=== PATIENT | female | born 1980 | race Caucasian/White ===

== ENCOUNTER → 2018-01-23 | Outpatient (CLI) | payer OTHER ==
--- NOTE | 2018-01-23 16:30 | RAD ---
Abdominal ultrasound, 01/23/2018: HISTORY: Abdominal pain The gallbladder is within normal limits in size. There is no sonographic evidence of cholelithiasis. The gallbladder wall is not thickened. No bile duct dilatation is evident. There is a 1.9 cm hyperechoic focus seen posteriorly in the right lobe of the liver. This appearance is most commonly due to a hemangioma. A 3 cm hyperechoic process is identified at the radha hepatis level. This probably represents an additional hemangioma versus extension of abdominal fat into the radha hepatis. The liver is otherwise unremarkable. The visualized portions of the pancreatic body are unremarkable. Other portions of the pancreas were obscured by overlying bowel. The aorta and inferior vena cava were incompletely visualized due to overlying bowel. The visualized portions of the abdominal aorta are of normal caliber. The spleen is of normal size. No renal abnormality is detected. No free fluid is evident in the abdomen. IMPRESSION: 1. Two small hyperechoic hepatic lesions are most likely hemangiomas. CT correlation and/or sonographic surveillance to establish stability is suggested. 2. No acute abdominal abnormality is detected. Electronically signed by: Baldomero Ruiz MD (01/23/2018 4:27 PM) [facility]
== END | disposition home or self-care (01) ==
LOC: US 10:34
PROVIDERS: ATTEND Family Medicine
DX: K76.89 Other specified diseases of liver (principal)
CPT/HCPCS: 76700

== ENCOUNTER → 2018-01-30 | Outpatient (CLI) | payer OTHER ==
[~2018-01-30] MED LIST: AMIT10TA PO; IOHEXOL 240 MG/ML 50ML VIAL. PO ONE; IOHEXOL 300 MG/ML 100ML VIAL. IV ONE
--- NOTE | 2018-01-30 10:14 | KCIC ---
CT ABD PELV W/ORAL IV CONTRAST dated 01/30/2018 9:30 AM Indication: Right upper quadrant pain.. Pain for 2 weeks Comparison: Ultrasound dated 01/23/2018. Technique: Contiguous axial imaging of the abdomen and pelvis performed after the administration of 100 cc Omnipaque 300. One or more of the following individualized dose reduction techniques were utilized for this examination: 1. Automated exposure control 2. Adjustment of the mA and/or kV according to patient size 3. Use of iterative reconstruction technique Findings: Limited images of lung bases are clear. Heart size within normal limits. No pleural or pericardial effusion. 2 small heterogeneous nodular foci at the right hepatic dome measure about 1.4 cm in size each and correlate with sonographic findings. There is also possible small nodule at the left lobe liver on image 12 that measures 1.6 cm. Additional area of low density along the radha hepatis correlates with echogenic focus seen on recent ultrasound. No biliary ductal dilatation. Gallbladder unremarkable. Spleen is normal in size. Pancreas, adrenal glands and kidneys are unremarkable. No hydronephrosis. Partially opacified GI tract is normal in caliber and contour. No focal bowel wall thickening. No inflammatory stranding in the mesentery. The appendix is normal in caliber. No ascites or lymphadenopathy. Abdominal aorta normal in caliber Images of pelvis show nondistended urinary bladder. Uterus and adnexa are unremarkable. No free fluid or lymphadenopathy. Bone windows show no acute findings. Mild multilevel spondylosis. IMPRESSION: 1. No acute abnormality of abdomen or pelvis. Normal appendix. 2. There are multiple liver lesions, 2 of which appear to correlate with findings on recent ultrasound. Given the appearance, these likely represent multifocal hemangioma. Suggest a follow-up biphasic CT or hepatic MRI in 6 months to ensure stability. Electronically signed by: Ken Salcido MD (01/30/2018 10:11 AM) [id number]
== END | disposition home or self-care (01) ==
LOC: KCIC CT 08:15
PROVIDERS: ATTEND Family Medicine
DX: M47.896 Other spondylosis, lumbar region (principal)
CPT/HCPCS: 74177; Q9966; Q9967

== ENCOUNTER → 2019-11-22 | Outpatient (CLI) | payer OTHER ==
[~2019-11-22] MED LIST changes: -IOHEXOL 240 MG/ML 50ML VIAL. PO ONE; -IOHEXOL 300 MG/ML 100ML VIAL. IV ONE
--- NOTE | 2019-11-22 12:01 | KCIC ---
BRAIN W/O CONTRAST History:Reason: LEFT LOWER EXTEMITY WEAKNESS / Spl. 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 Left leg weakness, left arm weakness. Technique: Multiplanar, multi sequential MR imaging was performed of the brain without contrast. Comparison: None Findings: No acute infarct. No intracranial hemorrhage. No mass effect. No hydrocephalus. Multifocal FLAIR hyperintense foci within the subcortical, deep and periventricular white matter. Crowding cerebellar tonsils at the foramen magnum. Imaged orbits are unremarkable. Imaged paranasal sinuses and mastoid air cells are clear. Impression: 1. Multifocal white matter lesions in a pattern typical of demyelinating disease. Alternatively findings may relate to sequela of chronic microvascular ischemia, migraine headaches or vasculitis. Recommend further clinical evaluation. Post contrast imaging can evaluate for active demyelination. Electronically signed by: Gerhard Valenzuela DO (11/22/2019 11:58 AM) [id number]
--- NOTE | 2019-11-22 12:05 | KCIC ---
PROCEDURE: CERVICAL SPINE 2-3V STUDY DATE: 11/22/2019 CLINICAL INDICATION / HISTORY: Reason: LEFT ARM WEAKNESS / Spl. Instructions: Left arm weakness x 2 mths. / History: . TECHNIQUE: 3 VIEWS: AP, lateral and odontoid COMPARISON: None FINDINGS: Alignment is within normal limits. There is preservation of the normal cervical lordosis. Vertebral body heights and disc spaces are well maintained. The atlantoaxial joint is well maintained. No fracture or subluxation is identified. Prevertebral and paraspinous soft tissues are unremarkable. IMPRESSION: No evidence of fracture or subluxation in the cervical spine. Electronically signed by: Marie Avles MD (11/22/2019 12:03 PM) [id number]
== END | disposition home or self-care (01) ==
LOC: KCIC MRI 10:04
PROVIDERS: ATTEND Nurse Practitioner Gerontology
DX: G37.8 Other specified demyelinating diseases of central nervous system (principal); R29.898 Other symptoms and signs involving the musculoskeletal system
CPT/HCPCS: 70551; 72040